=== PATIENT | female | born 1980 | race Caucasian/White ===

== ENCOUNTER 2018-03-16 16:48 | Emergency (ER) | payer BC ==
[2018-03-16 18:49] VITALS: BP 148/90
--- NOTE | 2018-03-16 19:08 | UC ---
Respiratory Complaint HPI - HPI Summary HPI Summary: Pt c/o nasal congestion, cough, malaise, chest congestion and fatigue X 6 weeks. - History of Current Complaint Chief Complaint: UCRespiratory Stated Complaint: HEAD AND CHEST CONGESTION Time Seen by Provider: 03/16/18 18:54 Hx Obtained From: Patient Hx Last Menstrual Period: 03/07/18 ?: No Onset/Duration: Gradual Onset, Lasting Weeks, Still Present, Worse Since - osnet Timing: Constant Severity Initially: Mild Severity Currently: Moderate Pain Intensity: 0 Character: Cough: Nonproductive Aggravating Factors: Exertion, Recumbent Position Associated Signs And Symptoms: Positive: Chills, URI, Nasal Congestion, Hoarseness - Risk Factors Pulmonary Embolism Risk Factors: Negative Cardiac Risk Factors: Negative Pseudomonas Risk Factors: Negative Tuberculosis Risk Factors: Negative - Allergies/Home Medications Allergies/Adverse Reactions: Allergies Allergy/AdvReac Type Severity Reaction Status Date / Time No Known Allergies Allergy Verified 03/16/18 18:42 PMH/Surg Hx/FS Hx/Imm Hx Previously Healthy: Yes - Surgical History Surgical History: Yes Surgery Procedure, Year, and Place: Tonsils. Back surgeries x3 - Family History Known Family History: Positive: Cardiac Disease - Social History Occupation: Employed Full-time Lives: With Family Alcohol Use: Rare Substance Use Type: None Smoking Status (MU): Light Every Day Tobacco Smoker Type: Cigarettes Amount Used/How Often: <1PPD Length of Time of Smoking/Using Tobacco: 20 years Have You Smoked in the Last Year: Yes - Immunization History Most Recent Tetanus Shot: UTD Review of Systems Constitutional: Fatigue Skin: Negative Eyes: Negative ENT: Sinus Congestion Respiratory: Cough Cardiovascular: Negative Gastrointestinal: Negative Genitourinary: Negative Motor: Negative Neurovascular: Negative Musculoskeletal: Negative Neurological: Negative Psychological: Negative Is Patient Immunocompromised?: No All Other Systems Reviewed And Are Negative: Yes Physical Exam Triage Information Reviewed: Yes Appearance: Well-Appearing Vital Signs: Initial Vital Signs Temp 99.1 F 03/16/18 18:43 Pulse 94 03/16/18 18:43 Resp 25 03/16/18 18:43 BP 148/90 03/16/18 18:43 Pulse Ox 97 03/16/18 18:43 Vital Signs Reviewed: Yes Eye Exam: Normal ENT Exam: Other ENT: Positive: Nasal congestion, Hoarse voice Dental Exam: Normal Neck exam: Normal Respiratory Exam: Normal Cardiovascular Exam: Normal Musculoskeletal Exam: Normal Neurological Exam: Normal Psychological Exam: Normal Skin Exam: Normal UC Diagnostic Evaluation - Laboratory O2 Sat by Pulse Oximetry: 97 Respiratory Course/Dx - Differential Dx/Diagnosis Differential Diagnosis/HQI/PQRI: Bronchitis, Sinusitis, Other - uri Provider Diagnoses: bronchitis Discharge - Sign-Out/Discharge Documenting (check all that apply): Patient Departure - Discharge Plan Condition: Stable Disposition: HOME Prescriptions: Azithromycin TAB* [Zithromax TAB (Z-AYLA) 250 mg #6 tabs] 2 tab PO .TODAY, THEN 1 DAILY #1 ayla Benzonatate CAP* [Tessalon 100 MG CAP*] 100 mg PO Q8H PRN #15 cap PRN Reason: Cough Cetirizine HCl/Pseudoephedrine [Zyrtec-D Tablet] 1 each PO DAILY #10 tab Patient Education Materials: Acute Bronchitis (ED) Referrals: Brian Malave MD [Primary Care Provider] - If Needed - Billing Disposition and Condition Condition: STABLE Disposition: Home
== END 2018-03-16 19:17 | disposition home or self-care (01) ==
LOC: UCCORT 16:48
DX: J40 Bronchitis, not specified as acute or chronic (principal); F17.210 Nicotine dependence, cigarettes, uncomplicated
CPT/HCPCS: 99202; G0463